=== PATIENT | male | born 1995 | race Caucasian/White ===

== ENCOUNTER 2020-09-25 21:07 | Emergency (ER) | payer OTHER ==
[~2020-09-25] VITALS: Ht 193 cm; Wt 115.7 kg
[~2020-09-25 21:07] MED LIST: LEVOXYL50 MCG
[2020-09-26] MEDS ORDERED: PEPCID40 MG PO (06:10)
[2020-09-26] MEDS ORDERED: CIPRO500 MG PO (06:10)
[2020-09-26] MEDS ORDERED: LEVSIN/SL0.125 MG SL (06:10)
[2020-09-26] MEDS ORDERED: INTESTINEX680 M1 PO (06:38)
== END 2020-09-26 06:40 | disposition home or self-care (01) ==
LOC: ER 21:07
DX: K52.89 Other specified noninfective gastroenteritis and colitis (principal); Z03.818 Encounter for observation for suspected exposure to other biological agents ruled out; R19.7 Diarrhea, unspecified; R11.0 Nausea

== ENCOUNTER 2024-08-17 05:42 | Emergency (ER) | payer OTHER ==
[~2024-08-17] VITALS: Ht 188 cm; Wt 93.9 kg
[~2024-08-17 05:42] MED LIST changes: +CIPRO500 MG PO; +INTESTINEX680 M1 PO; +LEVSIN/SL0.125 MG SL; +PEPCID40 MG PO
[2024-08-17] MEDS ORDERED: SYNTHROID175 MCG PO (06:08)
[2024-08-17] MEDS ORDERED: COZAAR100 MG PO (06:08)
[2024-08-17] MEDS ORDERED: LACTOBACILLUS ACIDOPHILUS 1 CAP CAP PO STA (07:20)
[2024-08-17] MEDS ORDERED: 0.9 % SODIUM CHLORIDE 1,000 ML IV ONE (07:30)
[2024-08-17] MEDS ORDERED: HYOSCYAMINE SULFATE 0.125 MG TAB.SUBL SL ONE (07:30)
[2024-08-17 08:06] LABS: HEMATOCRIT 38.6 % (39.0-48.0); HEMOGLOBIN 13.1 g/dL (13-16.00); MEAN CELL VOLUME 87.2 fL (80.0-100.00); MEAN CORPUSCULAR HEMOGLOBIN 29.7 pg (27.00-32.0); MEAN CORPUSCULAR HGB CONC 34.1 g/dl (32.0-36.0); PLATELET COUNT 308 K/uL (150-450); RED BLOOD COUNT 4.42 M/uL (4.00-6.00); RED CELL DISTRIBUTION WIDTH 13.2 % (11.5-14.5)
[2024-08-17 08:42] LABS: PH,URINE 5.5 (5.0-8.0); URINE APPEARANCE Clear; URINE BILIRRUBIN Negative (NEGATIVE); URINE COLOR Dark Yellow; URINE GLUCOSE Negative (NEGATIVE); URINE KETONE Trace (NEGATIVE); URINE LEUKOCYTE Negative; URINE NITRATE Negative; URINE PROTEIN Trace (NEGATIVE)
[2024-08-17 08:43] LABS: URINE BACTERIA 30.2 uL (0.0-1933); URINE EPITHELIAL CELLS 4.7 uL (0.0-38.8); URINE RBC 17.4 uL (0.0-20.8); URINE WBC 6.3 uL (0.0-23.2)
[2024-08-17 09:18] LABS: BILIRUBIN TOTAL 0.63 mg/dL (0.3-1.2); CALCIUM 9.3 mg/dL (8.5-10.1); CREATININE SERUM 0.75 mg/dL (0.70-1.30); GLOBULINA 4.4 G/DL (2.4-3.5); POTASSIUM 4.09 mEq/L (3.5-5.1); TOTAL PROTEIN 8.4 gm/dL (6.4-8.2)
[2024-08-17 09:20] LABS: URINE BLOOD TRACE
[2024-08-17] MEDS ORDERED: OSELTAMIVIR PHOSPHATE 75 MG CAPSULE PO ONE (09:45)
[2024-08-17] MEDS ORDERED: METROnidazole 500 MG TABLET PO ONE (09:45)
== END 2024-08-17 09:55 | disposition home or self-care (01) ==
LOC: ER 05:44
PROVIDERS: General Practice
DX: J10.1 Influenza due to other identified influenza virus with other respiratory manifestations (principal); Z20.822 Contact with and (suspected) exposure to COVID-19; K52.9 Noninfective gastroenteritis and colitis, unspecified; Z88.8 Allergy status to other drugs, medicaments and biological substances; I10 Essential (primary) hypertension